=== PATIENT | male | born 1960 | race African-American/Black ===

== ENCOUNTER 2022-03-29 12:29 | Emergency (ER) | payer OTHER ==
[~2022-03-29] VITALS: Ht 188 cm; Wt 108.9 kg
--- NOTE | 2022-03-29 12:45 | NUR ---
RECEIVED PT 62 yrs male came from home accompany by c/o by mai he took 15 tablet oxecodin at home
--- NOTE | 2022-03-29 13:19 | NUR ---
CALLED [facility]ISON [facility] [phone]. SPOKE TO DON. AT TIME OF CALL CHECK FOR ASPIRIN, TYLENOL, AND RUN CMP WITH FULL LIVER PANEL. OBSERVE FOR 6 HR FROM TIME OF INGESTION. ASSESS CMS, MENTAL STATUS, AND RESPIRATIONS. AT 4 HR RUN TYLENOL, IF HIGHER THAN 150 ADMINISTER NARCAN. IF NARCAN ADMINISTERED ADD 2 HRS TO OBSERVATION TIME.
--- NOTE | 2022-03-29 13:20 | NUR ---
BLOOD DROW BY LAB TACh at bed side
[2022-03-29 13:37] LABS: BASOPHILS # (AUTO) 0.1 K/uL (0.0-0.2); EOSINOPHILS % (AUTO) 2.6 % (0.0-6.0); HEMATOCRIT 47 % (39-51); HEMOGLOBIN 15.5 g/dL (13.5-17.5); LYMPHOCYTES # (AUTO) 3.4 K/uL (0.8-4.8); LYMPHOCYTES % (AUTO) 51.4 % (20.0-44.0); MEAN CORPUSCULAR HGB CONC 33 g/dl (31.0-36.0); MEAN CORPUSCULAR VOLUME 97 fL (80-96); MONOCYTES # (AUTO) 0.7 K/uL (0.1-1.30); MONOCYTES % (AUTO) 10.4 % (2.0-12.0); NEUTROPHILS # (AUTO) 2.3 K/uL (1.8-8.9); NEUTROPHILS % (AUTO) 34.6 % (43.0-81.0); PLATELET COUNT (AUTO) 180 K/uL (150-450); RED BLOOD CELL COUNT(AUTO) 4.81 MIL/uL (4.5-6.0); WHITE BLOOD COUNT (AUTO) 6.6 K/uL (4.3-11.0)
[2022-03-29 14:02] LABS: CARBON DIOXIDE 29 mmol/L (21-32); CHLORIDE 102 mmol/L (98-107); CREATININE 1.5 mg/dL (0.6-1.3); GLUCOSE 115 mg/dL (74-106); SODIUM SERUM 138 mmol/L (136-145); UREA NITROGEN, BLOOD 17 mg/dL (7-18)
[2022-03-29 14:08] LABS: ALANINE AMINOTRANSFERASE 35 U/L (12-78); ALBUMIN 4.3 g/dL (3.4-5.0); ALCOHOL, BLOOD < 3 mg/dL (0-0); ALKALINE PHOSPHATASE 83 U/L (46-116); ASPARTATE AMINOTRANSFERASE 31 U/L (15-37); BILIRUBIN,DIRECT 0.1 mg/dL (0.0-0.2); BILIRUBIN,TOTAL 0.4 mg/dL (0.2-1.0); TOTAL PROTEIN, SERUM 7.8 g/dL (6.4-8.2)
[2022-03-29 14:11] LABS: ACETAMINOPHEN < 10 ug/ml (10-30)
--- NOTE | 2022-03-29 14:16 | NUR ---
VITAL SIGNS UPDATED.
--- NOTE | 2022-03-29 16:00 | NUR ---
UA SENT TO LAB
[2022-03-29 16:24] LABS: BILIRUBIN,URINE NEGATIVE (NEGATIVE); COLOR,URINE YELLOW (YELLOW); LEUKOCYTE ESTERASE ,URINE NEGATIVE (NEGATIVE); NITRITE, URINE POSITIVE (NEGATIVE); PROTEIN,URINE NEGATIVE (NEGATIVE); UGLUCOSE NEGATIVE (NEGATIVE); UROBILINOGEN,URINE 0.2 EU/dL (0.2)
[2022-03-29 16:26] LABS: BACTERIA,URINE Rare /HPF (None Seen); RBC,URINE 0-2 /HPF (0-2); SQUAMOUS EPITHELIAL CELL,UR Few /HPF (None Seen)
[2022-03-29 17:47] VITALS: BP 135/67
--- NOTE | 2022-03-29 17:48 | NUR ---
Patient discharged to home in stable condition. Written and verbal after care instructions given. Patient verbalizes understanding of instruction.
== END 2022-03-29 17:48 | disposition home or self-care (01) ==
LOC: ER 12:29
DX: T40.601A Poisoning by unspecified narcotics, accidental (unintentional), initial encounter (principal); L29.9 Pruritus, unspecified; E78.00 Pure hypercholesterolemia, unspecified; K21.9 Gastro-esophageal reflux disease without esophagitis; M19.90 Unspecified osteoarthritis, unspecified site; Y92.89 Other specified places as the place of occurrence of the external cause
CPT/HCPCS: 36415; 80048-TC; 80076-TC; 81001; 85025-TC; 87086-TC; G0480